=== PATIENT | female | born 1975 | race Caucasian/White ===

== ENCOUNTER → 2016-09-27 | Outpatient (CLI) | payer BC ==
[~2016-09-27] MED LIST: ESTROGENS PO; RITALIN 20M20 MG/TAB PO
== END ==
LOC: BHSO 16:14
DX: F90.0 Attention-deficit hyperactivity disorder, predominantly inattentive type (principal)

== ENCOUNTER → 2016-11-02 | Outpatient (CLI) | payer BC | LOC: BHSO 15:18 | DX: F41.1 Generalized anxiety disorder (principal) ==

== ENCOUNTER → 2016-12-26 | Outpatient (CLI) | payer BC | LOC: BHSO 15:41 | DX: F41.1 Generalized anxiety disorder (principal) ==

== ENCOUNTER → 2017-03-04 | Outpatient (CLI) | payer BC | LOC: BHSO 15:45 | DX: F90.0 Attention-deficit hyperactivity disorder, predominantly inattentive type (principal) ==

== ENCOUNTER → 2017-04-03 | Outpatient (CLI) | payer BC | LOC: BHSO 15:57 | DX: F90.0 Attention-deficit hyperactivity disorder, predominantly inattentive type (principal) ==

== ENCOUNTER 2020-08-20 17:06 | Emergency (ER) | payer BC ==
[~2020-08-20] VITALS: Ht 167.6 cm; Wt 140.0 kg
[2020-08-20] MEDS ORDERED: NORCO 325 MG-51 TAB PO (19:43)
[2020-08-20 19:57] VITALS: BP 136/74; PULSE 75; TEMP 98.3
== END 2020-08-20 20:14 | disposition home or self-care (01) ==
LOC: COL.ER 17:06
DX: M25.561 Pain in right knee (principal); Z87.891 Personal history of nicotine dependence; W19.XXXA Unspecified fall, initial encounter
CPT/HCPCS: L1846